=== PATIENT | male | born 1975 | race Caucasian/White ===

== ENCOUNTER 2017-04-08 01:57 | Emergency (ER) | payer SELFPAY ==
[2017-04-08] MEDS ORDERED: LEVSIN SL SL ONE (02:26)
[2017-04-08] MEDS ORDERED: TORADOL IV ONE (02:26)
[2017-04-08] MEDS ORDERED: ZOFRAN IV ONE (02:26)
[2017-04-08] MEDS ORDERED: NACL 0.9% 1000 ML 1,000 ML IV ONE (02:26)
--- NOTE | 2017-04-08 02:33 | Emergency Department Report ---
ED Abdominal Pain HPI - General Chief Complaint: Abdominal Pain Stated Complaint: ABDOMINAL PAIN Time Seen by Provider: 04/08/17 02:22 Source: patient Mode of arrival: Ambulatory Limitations: No Limitations - History of Present Illness Initial Comments: 41-year-old male presents to ER with complaints of epigastric discomfort just prior to arrival. Pain is sharp and burning in nature. Pain is nonradiating. Positive nausea and loose stool times one episode. No fever no cough no shortness of breath. No known relieving or aggravating factors. MD Complaint: abdominal pain (epigastric region) -: Gradual (just prior to arrival) Location: epigastric Radiation: none Migration to: no migration Severity: moderate Severity scale (0 -10): 6 Quality: burning Consistency: intermittent Improves With: nothing Worsens With: nothing Associated Symptoms: nausea, diarrhea (1 episode of loose stools). denies: vomiting, fever, chills, constipation, dysuria, hematemesis, hematochezia, melena, hematuria, anorexia - Related Data Previous Rx's Medication Instructions Recorded Last Taken Type Dicyclomine [Bentyl] 40 mg PO QID #30 tablet 04/08/17 Unknown Rx Ondansetron [Zofran Odt] 4 mg PO Q8H PRN #16 tab.rapdis 04/08/17 Unknown Rx Sucralfate [Carafate] 1 gm PO Q6HR #120 tablet 04/08/17 Unknown Rx Allergies Allergy/AdvReac Type Severity Reaction Status Date / Time No Known Allergies Allergy Verified 04/08/17 03:50 ED Review of Systems ROS: Stated complaint: ABDOMINAL PAIN Other details as noted in HPI Comment: All other systems reviewed and negative Constitutional: malaise. denies: chills, diaphoresis, fever Eyes: denies: eye pain, eye discharge, vision change ENT: denies: throat pain, dental pain, hearing loss Respiratory: denies: cough, orthopnea, shortness of breath, SOB with exertion Cardiovascular: denies: chest pain, palpitations, dyspnea on exertion, edema, syncope, paroxysmal nocturnal dyspnea Endocrine: no symptoms reported Gastrointestinal: nausea, diarrhea (1 episode of loose stool). denies: vomiting , melena Genitourinary: denies: urgency, dysuria, frequency, hematuria Musculoskeletal: denies: back pain, joint swelling, arthralgia ED Past Medical Hx - Past Medical History Previous Medical History?: No - Surgical History Past Surgical History?: No - Social History Smoking Status: Never Smoker Substance Use Type: None - Medications Home Medications: Home Medications Medication Instructions Recorded Confirmed Last Taken Type Dicyclomine [Bentyl] 40 mg PO QID #30 tablet 04/08/17 Unknown Rx Ondansetron [Zofran Odt] 4 mg PO Q8H PRN #16 tab.rapdis 04/08/17 Unknown Rx Sucralfate [Carafate] 1 gm PO Q6HR #120 tablet 04/08/17 Unknown Rx ED Physical Exam - General Limitations: No Limitations General appearance: alert, in distress (moderate distress) - Head Head exam: Present: atraumatic, normocephalic, normal inspection - Eye Eye exam: Present: normal appearance, PERRL, EOMI. Absent: scleral icterus, conjunctival injection - ENT ENT exam: Present: normal exam, normal orophraynx, mucous membranes moist - Neck Neck exam: Present: normal inspection, full ROM. Absent: tenderness, meningismus, lymphadenopathy - Respiratory Respiratory exam: Present: normal lung sounds bilaterally, respiratory distress. Absent: wheezes, rales, rhonchi, chest wall tenderness, accessory muscle use - Cardiovascular Cardiovascular Exam: Present: regular rate, normal rhythm, normal heart sounds. Absent: tachycardia, irregular rhythm - GI/Abdominal GI/Abdominal exam: Present: soft, distended (full abdomen), tenderness ( epigastric region), guarding (epigastric region), diminished bowel sounds. Absent: rebound, rigid - Rectal Rectal exam: Present: deferred - Extremities Exam Extremities exam: Present: normal inspection, full ROM, normal capillary refill. Absent: pedal edema - Back Exam Back exam: Present: normal inspection, full ROM. Absent: CVA tenderness (L) - Neurological Exam Neurological exam: Present: alert, oriented X3, CN II-XII intact ED Course Vital Signs 04/08/17 04/08/17 02:04 02:22 Temperature 98.4 F Pulse Rate 58 L 64 Respiratory 24 20 Rate Blood Pressure 161/100 [Left] Blood Pressure 163/85 143/74 [Right] O2 Sat by Pulse 100 100 Oximetry ED Medical Decision Making - Lab Data Result diagrams: 04/08/17 02:41 04/08/17 02:41 - EKG Data -: EKG Interpreted by Me - EKG Data 04/08/17 05:44 Sinus bradycardia rate of 49 bpm normal axis nonspecific ST changes and T-wave inversion in the V2 and V1 - Radiology Data Radiology results: report reviewed Critical Care Time: No Critical care attestation.: If time is entered above; I have spent that time in minutes in the direct care of this critically ill patient, excluding procedure time. ED Disposition Clinical Impression: Gastritis Disposition: - TO HOME OR SELFCARE Is pt being admited?: No Does the pt Need Aspirin: No Condition: Stable Instructions: Gastritis (ED), Diet for Ulcers and Gastritis (ED) Additional Instructions: If you're prone gets worse, have your PCP refer you to a [facility] c[facility] developer Prescriptions: Dicyclomine [Bentyl] 40 mg PO QID #30 tablet Ondansetron [Zofran Odt] 4 mg PO Q8H PRN #16 tab.rapdis PRN Reason: Nausea And Vomiting Sucralfate [Carafate] 1 gm PO Q6HR #120 tablet Time of Disposition: 05:43
[2017-04-08 02:55] LABS: Basophils % (Auto) 0.3 % (0.0-1.8); Eosinophils % (Auto) 0.3 % (0.0-4.3); Hematocrit 43.8 % (35.5-45.6); Hemoglobin 14.9 gm/dl (11.8-15.2); Mean Corpuscular HGB Conc 34 % (32-34); Mean Corpuscular Hemoglobin 31 pg (28-32); Mean Corpuscular Volume 91 fl (84-94); Platelet Count 240 K/mm3 (140-440); Red Cell Distribution Width 13.8 % (13.2-15.2)
[2017-04-08 03:16] LABS: Alanine Aminotransferase 18 units/L (7-56); Albumin/Globulin Ratio 1.2 %; Alkaline Phosphatase 50 units/L (35-129); Anion Gap 22 mmol/L; BUN/Creatinine Ratio 17.14; Blood Urea Nitrogen 12 mg/dL (9-20); Calcium 8.7 mg/dL (8.4-10.2); Carbon Dioxide 20 mmol/L (22-30); Chloride 100.6 mmol/L (98-107); Glucose 156 mg/dL (75-100); Lipase 17 units/L (13-60); Potassium 3.7 mmol/L (3.6-5.0); Sodium 139 mmol/L (137-145); Total Protein 7.3 g/dL (6.3-8.2)
[2017-04-08] MEDS ORDERED: NACL ONE (03:33)
--- NOTE | 2017-04-08 04:38 | Cat Scan Report ---
FINAL REPORT PROCEDURE: CT ABDOMEN PELVIS W CON TECHNIQUE: Computerized axial tomography of the abdomen and pelvis was performed after the IV injection of iodinated nonionic contrast. HISTORY: Abdominal Pain COMPARISON: No prior studies are available for comparison. FINDINGS: Visualized lower thorax: No significant abnormality. Liver: Normal size and attenuation. Spleen: Normal size and attenuation. Gallbladder and biliary system: Normal. Pancreas: Normal. Adrenals: Normal. Kidneys: Normal. GI tract: There is no bowel obstruction, colitis or enteritis. The appendix is normal.. Lymph nodes and mesentery: Normal. Vasculature: Normal. Bladder: Normal. Reproductive organs: Normal. Peritoneum: There is no ascites or free air, abscess or adenopathy.. Musculoskeletal structures: No significant abnormality. Other: There is a small right inguinal hernia containing fat only.. IMPRESSION: There is no acute intra-abdominal abnormality. The appendix is normal.
[2017-04-08] MEDS ORDERED: CARAFATE PO ONE (05:37)
[2017-04-08] MEDS ORDERED: MORPHINE IV ONE (05:42)
[2017-04-08] MEDS ORDERED: LIDOCAINE VISCOUS 2% MM NR (05:45)
[2017-04-08 06:51] VITALS: BP 122/76
== END 2017-04-08 06:53 | disposition home or self-care (01) ==
LOC: ED 01:57
DX: K29.70 Gastritis, unspecified, without bleeding (principal)
CPT/HCPCS: 36415; 74177; 80053; 83690; 84484; 85025; 93005; 93010; 96361; 96374; 96375; 99284; J1885; J2270; J2405; J7030; Q9967